=== PATIENT | female | born 1980 | race Caucasian/White ===

== ENCOUNTER 2020-01-14 09:53 | Outpatient (CLI) | payer MEDICAID ==
[~2020-01-14] VITALS: Ht 170.2 cm; Wt 86.8 kg
[~2020-01-14 09:53] MED LIST: PREN1TAB60 PO; THYR60TA PO
[2020-01-14 10:08] VITALS: BP 106/58
== END 2020-01-14 11:15 | disposition home or self-care (01) ==
LOC: LDOP 09:53
PROVIDERS: ATTEND Obstetrics & Gynecology
DX: O09.523 Supervision of elderly multigravida, third trimester (principal); Z3A.32 32 weeks gestation of pregnancy
CPT/HCPCS: 59025

== ENCOUNTER 2020-02-29 09:28 | Inpatient (IN) | payer MEDICAID ==
[~2020-02-29] VITALS: Ht 172.7 cm; Wt 90.9 kg
[2020-02-29] MEDS ORDERED: TERBUTALINE 1 MG/ML, 1ML IVPush PRN (10:30)
[2020-02-29] MEDS ORDERED: FENTANYL PF 100 MCG/2ML IV PRN (10:30)
[2020-02-29] MEDS ORDERED: FENTANYL PF 100 MCG/2ML IVPush PRN (10:30)
[2020-02-29] MEDS ORDERED: TERBUTALINE 1 MG/ML, 1ML SQ PRN (10:30)
[2020-02-29] MEDS ORDERED: SODIUM CHLORIDE FLUSH 10ML SYR IVF PRN (10:30)
[2020-02-29] MEDS ORDERED: LACTATED RINGERS 1,000 ML IV SCH (10:30)
[2020-02-29] MEDS ORDERED: D5%-LACTATED RINGERS 1,000 ML IV SCH (10:30)
[2020-02-29] MEDS ORDERED: OXYTOCIN 30U/ 0.9% NaCL 500ML 500 ML IV ONE (10:30)
[2020-02-29] MEDS ORDERED: ONDANSETRON 2MG/ML, 2ML IVPush PRN (10:30)
[2020-02-29 10:48] LABS: BASOPHILS % (AUTO) 0 % (0-1); EOSINOPHILS % (AUTO) 1 % (1-7); LYMPHOCYTES % (AUTO) 15 % (22-44); MEAN CORPUSCULAR HEMOGLOBIN 28.5 pg (27.0-34.8); MEAN CORPUSCULAR HGB CONC 32.6 g/dL (32.4-35.8); MEAN PLATELET VOLUME 8.3 fL (7.4-10.4); MONOCYTES % (AUTO) 10 % (2-9); NEUTROPHILS % (AUTO) 74 % (42-75); PLATELET COUNT 214 x10^3/uL (130-400); RED BLOOD COUNT 3.58 x10^6/uL (3.82-5.3)
[2020-02-29 10:49] LABS: MD NO
[2020-02-29] MEDS ORDERED: OXYTOCIN 30U/ 0.9% NaCL 500ML 500 ML ONE ×2 (10:54→13:21)
[2020-02-29] MEDS ORDERED: NEWBORN KIT ONE (10:54)
[2020-02-29] MEDS ORDERED: MISOPROSTOL 200 MCG TABLET ONE (10:54)
[2020-02-29] MEDS ORDERED: LIDOCAINE 1%, 20ML ONE (10:54)
[2020-02-29] MEDS ORDERED: OXYTOCIN 30U/ 0.9% NaCL 500ML 500 ML IV PRN (11:30)
[2020-02-29] MEDS ORDERED: FENTANYL PF 100 MCG/2ML ONE ×2 (15:07→15:40)
[2020-02-29] MEDS ORDERED: TERBUTALINE 1 MG/ML, 1ML ONE (15:26)
[2020-02-29] MEDS ORDERED: PROPOFOL 10 MG/ML, 20ML ONE (15:33)
[2020-02-29] MEDS ORDERED: CEFAZOLIN 1,000 MG ONE (15:39)
[2020-02-29] MEDS ORDERED: OXYTOCIN 10 UNITS/ML, 1ML ONE (15:39)
[2020-02-29] MEDS ORDERED: ONDANSETRON 2MG/ML, 2ML ONE ×2 (15:39→17:37)
[2020-02-29] MEDS ORDERED: HYDROmorphone 2 MG/ML, 1ML ONE (15:40)
[2020-02-29] MEDS ORDERED: FENTANYL PF 250 MCG/5ML ONE (15:48)
[2020-02-29] MEDS ORDERED: KETOROLAC 30 MG/1 ML ONE (16:38)
[2020-02-29] MEDS ORDERED: OXYcodone 5 MG/5 ML ORAL.SOL UDC ONE (17:33)
[2020-02-29] MEDS ORDERED: METOCLOPRAMIDE 5 MG/ML, 2ML ONE (17:37)
[2020-02-29] MEDS ORDERED: OXYcodone 5 MG/5 ML ORAL.SOL UDC PO ONE (18:00)
[2020-02-29] MEDS ORDERED: LACTATED RINGERS 1,000 ML IVBOLUS ONE (18:00)
[2020-02-29] MEDS ORDERED: METOCLOPRAMIDE 5 MG/ML, 2ML IV ONE (18:00)
[2020-02-29] MEDS: OXYTOCIN 30U/ 0.9% NaCL 500ML 500 ML IV SCH (18:08)
[2020-02-29] MEDS: LACTATED RINGERS 1,000 ML IV SCH (18:30)
[2020-02-29] MEDS ORDERED: MEPERIDINE/PF 25MG/0.5ML IM PRN (18:30)
[2020-02-29] MEDS ORDERED: METHYLERGONOVINE 0.2 MG/ML IM PRN (18:30)
[2020-02-29] MEDS ORDERED: BISACODYL 10 MG SUPP PR PRN (18:30)
[2020-02-29] MEDS ORDERED: OXYcodone/APAP 5/325MG TABLET PO PRN (18:30)
[2020-02-29] MEDS ORDERED: MISOPROSTOL 200 MCG TABLET PR PRN (18:30)
[2020-02-29] MEDS ORDERED: CARBOPROST TROMETHAMINE 250 MCG/ML, 1ML IM PRN (18:30)
[2020-02-29] MEDS ORDERED: ONDANSETRON 2MG/ML, 2ML IV PRN (18:30)
[2020-02-29 20:00] VITALS: BP 108/70
[2020-02-29] MEDS: OXYcodone/APAP 5/325MG TABLET PO PRN (22:30)
[2020-02-29] MEDS: KETOROLAC 30 MG/1 ML IV SCH (23:28)
[2020-03-01] VITALS: BP 107/68
[2020-03-01 00:11] LABS: BASOPHILS % (AUTO) 0 % (0-1); EOSINOPHILS % (AUTO) 0 % (1-7); LYMPHOCYTES % (AUTO) 5 % (22-44); MEAN CORPUSCULAR HEMOGLOBIN 28.5 pg (27.0-34.8); MEAN CORPUSCULAR HGB CONC 32.3 g/dL (32.4-35.8); MEAN PLATELET VOLUME 8.5 fL (7.4-10.4); MONOCYTES % (AUTO) 5 % (2-9); NEUTROPHILS % (AUTO) 90 % (42-75); PLATELET COUNT 190 x10^3/uL (130-400); RED BLOOD COUNT 2.82 x10^6/uL (3.82-5.3); RED CELL DISTRIBUTION WIDTH 14.7 % (9.6-15.2)
[2020-03-01 01:00] LABS: MD SCAN
[2020-03-01] MEDS: OXYcodone/APAP 5/325MG TABLET PO PRN ×6 (02:48→23:45)
[2020-03-01 03:50] VITALS: BP 120/73
[2020-03-01] MEDS: LACTATED RINGERS 1,000 ML IV SCH (04:30)
[2020-03-01] MEDS: OXYTOCIN 30U/ 0.9% NaCL 500ML 500 ML IV SCH (04:30)
[2020-03-01] MEDS: KETOROLAC 30 MG/1 ML IV SCH ×3 (05:36→17:33)
[2020-03-01] MEDS: LEVOTHYROXINE 112 MCG TABLET PO SCH (06:00)
[2020-03-01] MEDS: DOCUSATE 100 MG CAPSULE PO PRN ×2 (07:30→19:39)
[2020-03-01] MEDS: PRENATAL VIT/IRON/FA 1 EACH TABLET PO SCH (07:30)
[2020-03-01] MEDS: MEPERIDINE/PF 50 MG/ML IM PRN ×2 (07:31→10:46)
[2020-03-01 07:40] VITALS: BP 99/55
[2020-03-01 11:44] VITALS: BP 95/57
[2020-03-01 16:10] VITALS: BP 105/67
[2020-03-01 19:15] VITALS: BP 104/67
[2020-03-01] MEDS: SIMETHICONE 80 MG CHEW TAB PO PRN (22:00)
[2020-03-01] MEDS ORDERED: IBUPROFEN 600 MG TABLET ONE (23:41)
[2020-03-01] MEDS: IBUPROFEN 600 MG TABLET PO PRN (23:44)
[2020-03-02] MEDS: OXYcodone/APAP 5/325MG TABLET PO PRN ×5 (03:54→23:08)
[2020-03-02] MEDS ORDERED: IBUPROFEN 600 MG TABLET ONE ×3 (05:52→18:17)
[2020-03-02] MEDS: IBUPROFEN 600 MG TABLET PO PRN ×3 (05:55→18:21)
[2020-03-02] MEDS: LEVOTHYROXINE 112 MCG TABLET PO SCH (05:56)
[2020-03-02 07:50] VITALS: BP 99/65
[2020-03-02] MEDS: PRENATAL VIT/IRON/FA 1 EACH TABLET PO SCH (09:00)
[2020-03-02] MEDS: SIMETHICONE 80 MG CHEW TAB PO PRN ×2 (12:57→23:07)
[2020-03-02 20:00] VITALS: BP 121/73
[2020-03-02] MEDS: DOCUSATE 100 MG CAPSULE PO PRN (23:07)
[2020-03-03] MEDS: IBUPROFEN 600 MG TABLET PO PRN ×3 (00:41→21:36)
[2020-03-03] MEDS: OXYcodone/APAP 5/325MG TABLET PO PRN (05:01)
[2020-03-03] MEDS: LEVOTHYROXINE 112 MCG TABLET PO SCH (05:42)
[2020-03-03 07:00] VITALS: BP 112/69
[2020-03-03] MEDS: PRENATAL VIT/IRON/FA 1 EACH TABLET PO SCH (09:00)
[2020-03-03] MEDS: FERROUS GLUCONATE 324 MG TABLET PO SCH ×2 (10:28→17:06)
[2020-03-03] MEDS: DOCUSATE 100 MG CAPSULE PO PRN ×2 (10:28→21:36)
[2020-03-03] MEDS: SIMETHICONE 80 MG CHEW TAB PO PRN ×2 (15:03→21:36)
[2020-03-03 21:50] VITALS: BP 113/71
[2020-03-04] MEDS: IBUPROFEN 600 MG TABLET PO PRN ×3 (04:06→16:34)
[2020-03-04] MEDS: SIMETHICONE 80 MG CHEW TAB PO PRN (04:09)
[2020-03-04] MEDS: LEVOTHYROXINE 112 MCG TABLET PO SCH (06:00)
[2020-03-04] MEDS ORDERED: DIPH,PERTUSS(ACELL),TET VAC/PF NC IM-VACC ONE (07:00)
[2020-03-04] MEDS: DOCUSATE 100 MG CAPSULE PO PRN (08:30)
[2020-03-04] MEDS: FERROUS GLUCONATE 324 MG TABLET PO SCH ×2 (08:30→16:34)
[2020-03-04] MEDS: PRENATAL VIT/IRON/FA 1 EACH TABLET PO SCH (08:53)
[2020-03-04] MEDS ORDERED: DOCU-131 PO (13:02)
[2020-03-04] MEDS ORDERED: FERR325T23 PO (13:03)
[2020-03-04] MEDS ORDERED: IBUP-1222 PO (13:05)
[2020-03-04] MEDS ORDERED: OXYC-302 PO (13:06)
== END 2020-03-04 18:30 | disposition home or self-care (01) | DRG 540 ==
LOC: LDOP 09:28 → LDIP 10:23 → 2NW 18:47
PROVIDERS: ADMIT Obstetrics & Gynecology; ATTEND Obstetrics & Gynecology
PROC: 10D00Z1 Extraction of Products of Conception, Low, Open Approach (ICD-10-PCS; principal; 2020-02-29)
DX: O26.873 Cervical shortening, third trimester (principal); O69.81X0 Labor and delivery complicated by cord around neck, without compression, not applicable or unspecified; O76 Abnormality in fetal heart rate and rhythm complicating labor and delivery; E03.9 Hypothyroidism, unspecified; J45.909 Unspecified asthma, uncomplicated; O99.284 Endocrine, nutritional and metabolic diseases complicating childbirth; Z20.828 Contact with and (suspected) exposure to other viral communicable diseases; O99.52 Diseases of the respiratory system complicating childbirth; Z3A.38 38 weeks gestation of pregnancy; Z37.0 Single live birth; Z91.013 Allergy to seafood; Z88.8 Allergy status to other drugs, medicaments and biological substances
CPT/HCPCS: 36415; 84443; 85025; 86592; 86850; 86900; 87635; 89060; 90715; 94002; G0378; J0690; J1170; J1885; J2175; J2405; J2704; J3010; J2590; J2765; J3105; J7120; Q0114